=== PATIENT | female | born 1980 | race Caucasian/White ===

== ENCOUNTER 2016-11-22 20:08 | Emergency (ER) | payer BC, OTHER ==
[2016-11-22] MEDS ORDERED: Ketorolac Tromethamine 30 MG/ML VIAL ONE (20:42)
--- NOTE | 2016-11-22 21:21 | RAD ---
PORTABLE AP PELVIS: 11/22/16 HISTORY: Trauma. FINDINGS/IMPRESSION: No acute fracture or dislocations are identified. POS: [facility]
[2016-11-22 21:27] LABS: #Basophils 0.1 thou/uL (0.0-0.2); #Eosinphils 0.1 thou/uL (0.0-0.7); #Lymphocytes 2.7 thou/uL (1.20-3.40); #Monocytes 0.7 thou/uL (0.11-0.59); #Neutrophils 6.8 thou/uL (1.40-6.50); %Basophils 0.9 % (0.0-1.0); %Eosinophils 0.6 % (0.0-10.0); %Monocytes 6.9 % (0.0-10.0); Hematocrit 43.1 % (36.0-47.0); Mean Platelet Volume 7.1 fL (7.4-10.4); Red Blood Cell (RBC) Count 4.53 mill/uL (4.20-5.40); White Blood Cell (WBC) Count 10.4 thou/uL (4.8-10.8)
--- NOTE | 2016-11-22 21:29 | RAD ---
PORTABLE CHEST ONE VIEW: 11/22/16 at 8:23 p.m. HISTORY: Trauma. FINDINGS/IMPRESSION: The heart size is normal. The lungs are expanded without focal areas of consolidation, pneumothorax or pleural effusions. IMPRESSION: No acute process. POS: [facility]
[2016-11-22 21:35] LABS: ALT (SGPT) 15 U/L (8-55); AST (SGOT) 27 U/L (5-34); Alkaline Phosphatase 71 U/L (40-150); Anion Gap 14 mmol/L (10-20); BUN (Urea Nitrogen) 8 mg/dL (7.0-18.7); Bilirubin, Total 0.4 mg/dL (0.2-1.2); Calc. Creatinine Clearance 0 mL/min (70-130); Calcium 9.5 mg/dL (7.8-10.44); Carbon Dioxide 25 mmol/L (22-29); Chloride 104 mmol/L (98-107); Estimated GFR-MDRD 57; Globulin 3.7 g/dL (2.4-3.5); Protein, Total 8.2 g/dL (6.0-8.3)
== END 2016-11-22 22:39 | disposition home or self-care (01) ==
LOC: ERS 20:08
DX: S20.212A Contusion of left front wall of thorax, initial encounter (principal); S70.02XA Contusion of left hip, initial encounter; F41.9 Anxiety disorder, unspecified; V80.929A Occupant of animal-drawn vehicle injured in unspecified transport accident, initial encounter; Y93.52 Activity, horseback riding
CPT/HCPCS: 71010; 72170; 80053; 84703; 85025; 93005; 96374; J1885